=== PATIENT | female | born 1935 | race Caucasian/White ===

== ENCOUNTER → 2018-01-17 12:25 | Outpatient (CLI) | payer MEDICARE ==
[~2018-01-17] VITALS: Ht 165.1 cm; Wt 55.5 kg
[2018-01-17 14:10] VITALS: Ht 165.1 cm; Wt 55.5 kg
== END | disposition home or self-care (01) ==
LOC: D.MRI 01-16 07:30
DX: M54.6 Pain in thoracic spine (principal)